=== PATIENT | male | born 1940 | race Caucasian/White ===

== ENCOUNTER 2020-03-19 13:50 | Inpatient (IN) ==
[2020-03-19] MEDS ORDERED: Naloxone 0.4 MG/ML INJ IVP PRN (16:04)
[2020-03-19] MEDS ORDERED: Ondansetron ODT 4 MG TAB.RAPDIS SL PRN (16:04)
[2020-03-19] MEDS ORDERED: 0.9 % Sodium Chloride 1,000 ML IVC SCH (16:15)
[2020-03-19] MEDS ORDERED: 0.9 % Sodium Chloride 1,000 ML IVC ONE (16:44)
[2020-03-19 16:48] LABS: Basophils % 0.2 %; Hematocrit 29.8 % (37.5-50.1); Hemoglobin 9.7 g/dL (12.9-16.9); Immature Granulocytes % 0.6 % (0-4); Lymphocytes # 0.4 K/mcL (0.6-4.6); Lymphocytes % 3.7 %; Mean Corpuscular HGB Conc 32.6 g/dL (31.6-35.5); Mean Corpuscular Hemoglobin 33.1 pg (28.0-33.3); Mean Corpuscular Volume 101.7 fL (83.0-100.0); Mean Platelet Volume 11.8 fL (9.4-12.4); Monocytes # 0.9 K/mcL (0.0-1.3); Monocytes % 8.1 %; Neutrophils # 9.9 K/mcL (1.6-8.9); Platelet Count 151 K/mcL (140-400); Red Blood Count 2.93 M/mcL (4.19-5.50); Red Cell Distribution Width 15.9 % (11.5-14.5); Segmented Neutrophils % 87.4 %; White Blood Count 11.3 K/mcL (4.3-11.1)
[2020-03-19 16:52] LABS: INR 1.9; Prothrombin Time 21.1 Seconds (9.4-12.1)
[2020-03-19 17:05] LABS: Albumin 3.3 g/dL (3.5-5.7); Albumin/Globulin Ratio 1.5 (1.1-2.2); Calcium 8.1 mg/dL (8.6-10.3); Globulin 2.2 g/dL (2.4-3.5); Potassium 3.9 mEq/L (3.5-5.1); Total Protein 5.5 g/dL (6.4-8.9)
[2020-03-19 17:29] LABS: Chol/HDL Ratio 3.3 (0-4.9)
[2020-03-19] MEDS ORDERED: *HR* Heparin 5,000 UNIT/ML VIAL IVP ONE (17:47)
[2020-03-19] MEDS ORDERED: *HR* Heparin 5,000 UNIT/ML VIAL IVP PRN ×2 (17:47)
[2020-03-19] MEDS ORDERED: Heparin 25,000 UNIT/250 ML D5W 25,000 UNIT/250 ML IV.SOLN IVC SCH (18:00)
[2020-03-19] MEDS ORDERED: *HR* Heparin 5,000 UNIT/ML VIAL SQ SCH (18:00)
[2020-03-19] MEDS ORDERED: *HR* Metoprolol 5 MG/5 ML VIAL IVP PRN (18:15)
[2020-03-19] MEDS: 0.9 % Sodium Chloride 1,000 ML IVC SCH (18:49)
[2020-03-19] MEDS ORDERED: *HR* Amiodarone 200 MG TABLET PO SCH (21:00)
[2020-03-19] MEDS ORDERED: Acetaminophen 325 MG TABLET PO ONE (21:35)
[2020-03-19] MEDS ORDERED: *HR* Metoprolol 5 MG/5 ML VIAL IVP ONE ×2 (21:36→21:45)
[2020-03-19] MEDS ORDERED: Acetaminophen IV 1,000 MG/100 ML INFUS..BTL IVPB ONE (23:10)
[2020-03-19] MEDS: Piperacillin/Tazobactam 3.375 GM in 0.9 % Sodium Chloride Mini Bag 100 ML IVPB SCH (23:59)
[2020-03-20 01:07] LABS: Basophils % 0.2 %; Hematocrit 27.1 % (37.5-50.1); Hemoglobin 8.9 g/dL (12.9-16.9); Immature Granulocytes % 0.7 % (0-4); Lymphocytes # 0.5 K/mcL (0.6-4.6); Lymphocytes % 4.6 %; Mean Corpuscular HGB Conc 32.8 g/dL (31.6-35.5); Mean Corpuscular Hemoglobin 33.6 pg (28.0-33.3); Mean Corpuscular Volume 102.3 fL (83.0-100.0); Mean Platelet Volume 12.6 fL (9.4-12.4); Monocytes # 0.8 K/mcL (0.0-1.3); Monocytes % 8.3 %; Neutrophils # 8.3 K/mcL (1.6-8.9); Platelet Count 141 K/mcL (140-400); Red Blood Count 2.65 M/mcL (4.19-5.50); Red Cell Distribution Width 15.9 % (11.5-14.5); Segmented Neutrophils % 86.2 %; White Blood Count 9.7 K/mcL (4.3-11.1)
[2020-03-20 01:26] LABS: Calcium 7.8 mg/dL (8.6-10.3); Potassium 3.9 mEq/L (3.5-5.1)
[2020-03-20] MEDS: 0.9 % Sodium Chloride 1,000 ML IVC SCH (02:18)
[2020-03-20] MEDS: Piperacillin/Tazobactam 3.375 GM in 0.9 % Sodium Chloride Mini Bag 100 ML IVPB SCH ×2 (08:14→17:26)
[2020-03-20 10:35] LABS: Hematocrit 29.3 % (37.5-50.1); Hemoglobin 9.5 g/dL (12.9-16.9); Mean Corpuscular HGB Conc 32.4 g/dL (31.6-35.5); Mean Corpuscular Hemoglobin 33.5 pg (28.0-33.3); Mean Corpuscular Volume 103.2 fL (83.0-100.0); Platelet Count 137 K/mcL (140-400); Red Blood Count 2.84 M/mcL (4.19-5.50); White Blood Count 11.5 K/mcL (4.3-11.1)
[2020-03-20 10:41] LABS: Heparin anti-factor XA UFH 0.71 IU/mL (0.30-0.70)
[2020-03-20 10:42] LABS: INR 1.7
[2020-03-20] MEDS: Heparin 25,000 UNIT/250 ML D5W 25,000 UNIT/250 ML IV.SOLN IVC SCH (11:25)
[2020-03-20] MEDS ORDERED: traZODone 50 MG TABLET PO PRN (14:29)
[2020-03-20] MEDS ORDERED: Acetaminophen 325 MG TABLET PO PRN (14:35)
[2020-03-20] MEDS ORDERED: *HR* FentaNYL (PF) 100 MCG/2 ML VIAL IVP ONE (14:43)
[2020-03-21] MEDS: Piperacillin/Tazobactam 3.375 GM in 0.9 % Sodium Chloride Mini Bag 100 ML IVPB SCH ×3 (00:27→19:00)
[2020-03-21 00:54] LABS: Basophils % 0.2 %; Hematocrit 28.8 % (37.5-50.1); Hemoglobin 9.3 g/dL (12.9-16.9); Immature Granulocytes % 0.9 % (0-4); Lymphocytes # 0.6 K/mcL (0.6-4.6); Lymphocytes % 5.5 %; Mean Corpuscular HGB Conc 32.3 g/dL (31.6-35.5); Mean Corpuscular Hemoglobin 33.1 pg (28.0-33.3); Mean Corpuscular Volume 102.5 fL (83.0-100.0); Mean Platelet Volume 12.6 fL (9.4-12.4); Monocytes # 0.8 K/mcL (0.0-1.3); Monocytes % 7.2 %; Neutrophils # 9.6 K/mcL (1.6-8.9); Platelet Count 165 K/mcL (140-400); Red Blood Count 2.81 M/mcL (4.19-5.50); Segmented Neutrophils % 86.2 %; White Blood Count 11.2 K/mcL (4.3-11.1)
[2020-03-21 01:03] LABS: Calcium 8.1 mg/dL (8.6-10.3); Potassium 3.8 mEq/L (3.5-5.1)
[2020-03-21 01:05] LABS: % Iron Saturation 9 % (20-55); Iron 12 mcg/dL (65-175); Transferrin 97 mg/dL (203-362)
[2020-03-21 01:37] LABS: Ferritin 1343 ng/mL (20-250)
[2020-03-21 02:07] LABS: Folate > 22.3 ng/mL (3.0-16.0); Vitamin B12 593 pg/mL (250-1100)
[2020-03-21 02:44] LABS: INR 1.6
[2020-03-21] MEDS ORDERED: 0.9 % Sodium Chloride 1,000 ML IVC SCH (18:13)
[2020-03-21] MEDS ORDERED: Ondansetron ODT 4 MG TAB.RAPDIS SL PRN (18:14)
[2020-03-21] MEDS: Heparin 25,000 UNIT/250 ML D5W 25,000 UNIT/250 ML IV.SOLN IVC SCH (18:41)
[2020-03-22] MEDS: Piperacillin/Tazobactam 3.375 GM in 0.9 % Sodium Chloride Mini Bag 100 ML IVPB SCH (00:05)
[2020-03-22] MEDS: *HR* Metoprolol 5 MG/5 ML VIAL IVP SCH ×4 (00:23→18:13)
[2020-03-22 01:07] LABS: Basophils % 0.4 %; Eosinophils % 0.5 %; Hematocrit 26.6 % (37.5-50.1); Hemoglobin 8.5 g/dL (12.9-16.9); Immature Granulocytes % 1.3 % (0-4); Lymphocytes # 0.7 K/mcL (0.6-4.6); Mean Corpuscular Hemoglobin 32.9 pg (28.0-33.3); Mean Corpuscular Volume 103.1 fL (83.0-100.0); Monocytes # 0.6 K/mcL (0.0-1.3); Monocytes % 7.5 %; Neutrophils # 6.8 K/mcL (1.6-8.9); Platelet Count 159 K/mcL (140-400); Red Blood Count 2.58 M/mcL (4.19-5.50); Segmented Neutrophils % 82.3 %; White Blood Count 8.3 K/mcL (4.3-11.1)
[2020-03-22 01:14] LABS: INR 1.4; Prothrombin Time 15.6 Seconds (9.4-12.1)
[2020-03-22 01:23] LABS: Calcium 8.2 mg/dL (8.6-10.3); Potassium 3.5 mEq/L (3.5-5.1)
[2020-03-22] MEDS ORDERED: Bupivacaine/EPI 1:200k 0.25%PF 30 ML VIAL ONE (07:20)
[2020-03-22] MEDS ORDERED: *HR* Propofol 200 MG/20 ML VIAL IVP ONE (07:24)
[2020-03-22] MEDS ORDERED: *HR* FentaNYL (PF) 100 MCG/2 ML VIAL ONE ×2 (07:24→10:02)
[2020-03-22] MEDS ORDERED: Lidocaine -MPF 2% 2 ML VIAL ONE (07:30)
[2020-03-22] MEDS ORDERED: *HR* Rocuronium Bromide 50 MG/5 ML VIAL ONE (07:33)
[2020-03-22] MEDS ORDERED: Dexamethasone 4 MG/ML VIAL ONE (07:33)
[2020-03-22] MEDS ORDERED: Ondansetron 4 MG/2 ML VIAL ONE (07:33)
[2020-03-22] MEDS ORDERED: *HR* Succinylcholine 200 MG/10 ML VIAL IVP ONE (07:33)
[2020-03-22] MEDS ORDERED: Ondansetron 4 MG/2 ML VIAL IVP ONE (07:43)
[2020-03-22] MEDS ORDERED: *HR* Promethazine 25 MG/ML VIAL IVP PRN (07:43)
[2020-03-22] MEDS ORDERED: *HR* OxyCODONE Immed Rel 5 MG TABLET PO PRN ×2 (07:43→11:55)
[2020-03-22] MEDS ORDERED: Isovue-300 50ML VIAL ONE (07:45)
[2020-03-22] MEDS ORDERED: Acetaminophen IV 1,000 MG/100 ML INFUS..BTL ONE (08:10)
[2020-03-22] MEDS ORDERED: *HR* PHENYLEPHRINE 1,000 MCG/10 ML SYRINGE IVP ONE (08:39)
[2020-03-22] MEDS ORDERED: Lidocaine HCL 4 ML Topical Solution (Laryng-O-Jet Kit Sterile Pak) TP ONE (09:54)
[2020-03-22] MEDS: *HR* HYDROmorphone PF 0.5 MG/0.5 ML SYRINGE IVP PRN ×4 (10:22→10:56)
[2020-03-22] MEDS ORDERED: 0.9 % Sodium Chloride 500 ML ONE (10:26)
[2020-03-22] MEDS ORDERED: Ringers Solution, Lactated 250 ML IVC PRN (11:55)
[2020-03-22] MEDS ORDERED: Naloxone 0.4 MG/ML INJ IVP PRN (11:55)
[2020-03-22] MEDS ORDERED: Ondansetron ODT 4 MG TAB.RAPDIS SL PRN (11:55)
[2020-03-22] MEDS ORDERED: Ringers Solution, Lactated 1,000 ML IVC SCH (11:55)
[2020-03-22] MEDS ORDERED: traZODone 50 MG TABLET PO PRN (11:55)
[2020-03-22] MEDS ORDERED: *HR* Metoprolol 5 MG/5 ML VIAL IVP SCH (12:00)
[2020-03-22] MEDS ORDERED: Ringers Solution, Lactated 500 ML IVC ONE (13:12)
[2020-03-22] MEDS ORDERED: *HR* Heparin 5,000 UNIT/ML VIAL IVP ONE ×2 (14:10→14:13)
[2020-03-22] MEDS ORDERED: *HR* Heparin 5,000 UNIT/ML VIAL IVP PRN ×4 (14:10→14:13)
[2020-03-22] MEDS ORDERED: Heparin 25,000 UNIT/250 ML D5W 25,000 UNIT/250 ML IV.SOLN IVC SCH ×3 (14:15→14:27)
[2020-03-22 15:07] LABS: Hematocrit 29.3 % (37.5-50.1); Hemoglobin 9.5 g/dL (12.9-16.9); Mean Corpuscular HGB Conc 32.4 g/dL (31.6-35.5); Mean Corpuscular Hemoglobin 34.2 pg (28.0-33.3); Mean Corpuscular Volume 105.4 fL (83.0-100.0); Mean Platelet Volume 12.3 fL (9.4-12.4); Platelet Count 206 K/mcL (140-400); Red Blood Count 2.78 M/mcL (4.19-5.50); Red Cell Distribution Width 16.5 % (11.5-14.5); White Blood Count 9.8 K/mcL (4.3-11.1)
[2020-03-22] MEDS: Acetaminophen 325 MG TABLET PO PRN (15:09)
[2020-03-22 15:13] LABS: Heparin anti-factor XA UFH 0.22 IU/mL (0.30-0.70); INR 1.2; Prothrombin Time 13.4 Seconds (9.4-12.1)
[2020-03-22 15:17] LABS: Activated Partial Thrombo Time 32.5 Seconds (26.0-36.0)
[2020-03-22] MEDS: Ringers Solution, Lactated 1,000 ML IVC SCH ×2 (15:33→22:13)
[2020-03-22] MEDS: allopurinoL 100 MG TABLET PO SCH (20:03)
[2020-03-23] MEDS: *HR* Metoprolol 5 MG/5 ML VIAL IVP SCH ×5 (00:37→15:03)
[2020-03-23] MEDS: Acetaminophen 325 MG TABLET PO PRN (00:40)
[2020-03-23] MEDS: Piperacillin/Tazobactam 3.375 GM in 0.9 % Sodium Chloride Mini Bag 100 ML IVPB SCH (03:44)
[2020-03-23 04:07] LABS: Hematocrit 26.3 % (37.5-50.1); Hemoglobin 8.6 g/dL (12.9-16.9); Immature Granulocytes % 2.4 % (0-4); Lymphocytes % 4.3 %; Mean Corpuscular HGB Conc 32.7 g/dL (31.6-35.5); Mean Platelet Volume 11.3 fL (9.4-12.4); Monocytes % 8.5 %; Platelet Count 208 K/mcL (140-400); Red Blood Count 2.53 M/mcL (4.19-5.50); Segmented Neutrophils % 84.5 %; White Blood Count 13.1 K/mcL (4.3-11.1)
[2020-03-23 04:08] LABS: Basophils % 0.3 %; Lymphocytes # 0.6 K/mcL (0.6-4.6); Monocytes # 1.1 K/mcL (0.0-1.3); Neutrophils # 11.1 K/mcL (1.6-8.9); Nucleated Red Blood Cells 0.2 /100 WBC (0)
[2020-03-23 04:13] LABS: INR 1.2; Prothrombin Time 13.7 Seconds (9.4-12.1)
[2020-03-23 04:30] LABS: Albumin/Globulin Ratio 1.2 (1.1-2.2); Bilirubin,Direct 0.5 mg/dL (0.0-0.2); Bilirubin,Indirect 0.4 mg/dL (0.0-1.0); Bilirubin,Total 0.9 mg/dL (0.3-1.0); Globulin 2.6 g/dL (2.4-3.5); Total Protein 5.6 g/dL (6.4-8.9)
[2020-03-23 04:31] LABS: Calcium 8.6 mg/dL (8.6-10.3); Potassium 4.1 mEq/L (3.5-5.1)
[2020-03-23] MEDS: allopurinoL 100 MG TABLET PO SCH ×2 (09:13→19:59)
[2020-03-23] MEDS: Ringers Solution, Lactated 1,000 ML IVC SCH ×3 (09:13→20:01)
[2020-03-23 10:41] LABS: Bilirubin,Urine Negative (Negative); Blood,Urine Negative (Negative); Clarity,Urine Clear (Clear); Color,Urine Yellow (Yellow); Glucose,Urine (UA) Normal (Normal); Ketones,Urine Trace mg/dL (Negative); Leukocyte Esterase,Urine Negative (Negative); Nitrite,Urine Negative (Negative); Protein,Urine 50 mg/dL (Neg-Trace); Specific Gravity,Urine 1.028 (1.010-1.025); WBC,Urine 0-3 per hpf (0-3)
[2020-03-23] MEDS ORDERED: *HR* Metoprolol 5 MG/5 ML VIAL IVP PRN (15:02)
[2020-03-23] MEDS: Apixaban 2.5 MG TABLET PO SCH (15:07)
[2020-03-24] MEDS: Ringers Solution, Lactated 1,000 ML IVC SCH ×3 (03:15→20:06)
[2020-03-24 05:51] LABS: Basophils % 0.2 %; Hematocrit 23.4 % (37.5-50.1); Immature Granulocytes % 2.7 % (0-4); Lymphocytes # 0.4 K/mcL (0.6-4.6); Lymphocytes % 4.2 %; Mean Corpuscular HGB Conc 32.9 g/dL (31.6-35.5); Mean Corpuscular Volume 100.4 fL (83.0-100.0); Monocytes # 0.8 K/mcL (0.0-1.3); Monocytes % 7.6 %; Neutrophils # 8.6 K/mcL (1.6-8.9); Nucleated Red Blood Cells 0.3 /100 WBC (0); Platelet Count 187 K/mcL (140-400); Red Blood Count 2.33 M/mcL (4.19-5.50); Red Cell Distribution Width 15.9 % (11.5-14.5); Segmented Neutrophils % 85.3 %; White Blood Count 10.1 K/mcL (4.3-11.1)
[2020-03-24 05:55] LABS: Hemoglobin 7.7 g/dL (12.9-16.9)
[2020-03-24 06:09] LABS: Calcium 8.6 mg/dL (8.6-10.3); Potassium 3.8 mEq/L (3.5-5.1)
[2020-03-24] MEDS ORDERED: *HR* Metoprolol 5 MG/5 ML VIAL IVP ONE (06:36)
[2020-03-24] MEDS ORDERED: *HR* Metoprolol 5 MG/5 ML VIAL IVP SCH ×2 (08:00→12:00)
[2020-03-24] MEDS: Apixaban 2.5 MG TABLET PO SCH (08:11)
[2020-03-24] MEDS: allopurinoL 100 MG TABLET PO SCH (08:11)
[2020-03-24] MEDS ORDERED: QUEtiapine Fumarate 25 MG TABLET PO PRN (08:12)
[2020-03-24] MEDS: Piperacillin/Tazobactam 3.375 GM in 0.9 % Sodium Chloride Mini Bag 100 ML IVPB SCH ×2 (08:23→16:56)
[2020-03-24] MEDS: Acetaminophen 325 MG TABLET PO PRN (08:23)
[2020-03-24] MEDS ORDERED: 0.9 % Sodium Chloride 1,000 ML IVC ONE (10:21)
[2020-03-24 13:01] LABS: Hemoglobin 7.5 g/dL (12.9-16.9)
[2020-03-25] MEDS: Piperacillin/Tazobactam 3.375 GM in 0.9 % Sodium Chloride Mini Bag 100 ML IVPB SCH ×2 (00:30→09:04)
[2020-03-25] MEDS: Ringers Solution, Lactated 1,000 ML IVC SCH (03:30)
[2020-03-25 05:15] LABS: Basophils % 0.2 %; Eosinophils % 0.4 %; Hematocrit 22.3 % (37.5-50.1); Hemoglobin 7.3 g/dL (12.9-16.9); Immature Granulocytes % 2.7 % (0-4); Lymphocytes # 0.5 K/mcL (0.6-4.6); Lymphocytes % 5.1 %; Mean Corpuscular HGB Conc 32.7 g/dL (31.6-35.5); Mean Corpuscular Volume 100.9 fL (83.0-100.0); Mean Platelet Volume 11.1 fL (9.4-12.4); Monocytes # 0.6 K/mcL (0.0-1.3); Monocytes % 6.6 %; Neutrophils # 8.2 K/mcL (1.6-8.9); Nucleated Red Blood Cells 0.3 /100 WBC (0); Platelet Count 184 K/mcL (140-400); Red Blood Count 2.21 M/mcL (4.19-5.50); Red Cell Distribution Width 16.6 % (11.5-14.5); White Blood Count 9.6 K/mcL (4.3-11.1)
[2020-03-25 05:32] LABS: Albumin 2.5 g/dL (3.5-5.7); Albumin/Globulin Ratio 1.2 (1.1-2.2); Bilirubin,Direct 0.4 mg/dL (0.0-0.2); Bilirubin,Indirect 0.2 mg/dL (0.0-1.0); Bilirubin,Total 0.6 mg/dL (0.3-1.0); Calcium 8.5 mg/dL (8.6-10.3); Globulin 2.1 g/dL (2.4-3.5); Potassium 3.7 mEq/L (3.5-5.1); Total Protein 4.6 g/dL (6.4-8.9); Uric Acid 4.5 mg/dL (2.3-7.6)
[2020-03-25] MEDS ORDERED: 0.9 % Sodium Chloride 250 ML IVC SCH (11:45)
[2020-03-26 02:58] LABS: Basophils # 0.1 K/mcL (0.0-0.2); Basophils % 0.4 %; Eosinophils % 0.3 %; Hematocrit 27.1 % (37.5-50.1); Immature Granulocytes % 4.8 % (0-4); Lymphocytes # 0.7 K/mcL (0.6-4.6); Lymphocytes % 6.1 %; Mean Corpuscular HGB Conc 33.2 g/dL (31.6-35.5); Mean Corpuscular Hemoglobin 32.8 pg (28.0-33.3); Mean Corpuscular Volume 98.9 fL (83.0-100.0); Mean Platelet Volume 11.3 fL (9.4-12.4); Monocytes # 0.8 K/mcL (0.0-1.3); Monocytes % 6.6 %; Neutrophils # 9.8 K/mcL (1.6-8.9); Nucleated Red Blood Cells 0.3 /100 WBC (0); Platelet Count 231 K/mcL (140-400); Red Blood Count 2.74 M/mcL (4.19-5.50); Red Cell Distribution Width 16.8 % (11.5-14.5); Segmented Neutrophils % 81.8 %
[2020-03-26 03:09] LABS: Calcium 8.7 mg/dL (8.6-10.3); Potassium 3.9 mEq/L (3.5-5.1)
[2020-03-26 12:10] VITALS: BP 147/75
== END 2020-03-26 13:00 | disposition home health service (06) | DRG 853 ==
LOC: 3ANU → SUATTDRO 15:06
PROVIDERS: ADMIT Pharmacist; ATTEND Internal Medicine

== ENCOUNTER 2020-03-27 18:30 | Observation (INO) ==
[2020-03-27 20:10] LABS: Basophils # 0.1 K/mcL (0.0-0.2); Basophils % 1.2 %; Eosinophils # 0.1 K/mcL (0.0-0.6); Eosinophils % 0.9 %; Hematocrit 28.5 % (37.5-50.1); Hemoglobin 9.2 g/dL (12.9-16.9); Immature Granulocytes % 7.2 % (0-4); Lymphocytes # 0.5 K/mcL (0.6-4.6); Mean Corpuscular HGB Conc 32.3 g/dL (31.6-35.5); Mean Corpuscular Hemoglobin 32.4 pg (28.0-33.3); Mean Corpuscular Volume 100.4 fL (83.0-100.0); Mean Platelet Volume 11.2 fL (9.4-12.4); Monocytes # 0.5 K/mcL (0.0-1.3); Monocytes % 5.7 %; Nucleated Red Blood Cells 0.3 /100 WBC (0); Platelet Count 250 K/mcL (140-400); Red Blood Count 2.84 M/mcL (4.19-5.50); Red Cell Distribution Width 16.8 % (11.5-14.5); White Blood Count 8.9 K/mcL (4.3-11.1)
[2020-03-27 20:13] LABS: INR 1.4; Prothrombin Time 15.4 Seconds (9.4-12.1)
[2020-03-27 20:26] LABS: Large Platelets Present (Not Present); Platelet Estimate Normal (Normal)
[2020-03-27 20:27] LABS: Calcium 8.8 mg/dL (8.6-10.3); Potassium 3.8 mEq/L (3.5-5.1)
[2020-03-27 20:29] LABS: Troponin I 0.04 ng/mL (< 0.04)
[2020-03-27] MEDS ORDERED: Naloxone 0.4 MG/ML INJ IVP PRN (22:35)
[2020-03-27] MEDS ORDERED: DARBEPOETIN ALFA IN POLYSORBAT 60 MCG IJ SCH (22:45)
[2020-03-28 05:22] LABS: Basophils # 0.1 K/mcL (0.0-0.2); Eosinophils # 0.1 K/mcL (0.0-0.6); Eosinophils % 1.2 %; Hematocrit 25.8 % (37.5-50.1); Hemoglobin 8.6 g/dL (12.9-16.9); Lymphocytes # 0.5 K/mcL (0.6-4.6); Lymphocytes % 6.4 %; Mean Corpuscular HGB Conc 33.3 g/dL (31.6-35.5); Mean Corpuscular Hemoglobin 33.1 pg (28.0-33.3); Mean Corpuscular Volume 99.2 fL (83.0-100.0); Mean Platelet Volume 10.7 fL (9.4-12.4); Monocytes # 0.4 K/mcL (0.0-1.3); Monocytes % 5.7 %; Neutrophils # 6.1 K/mcL (1.6-8.9); Nucleated Red Blood Cells 0.4 /100 WBC (0); Platelet Count 204 K/mcL (140-400); Red Cell Distribution Width 16.5 % (11.5-14.5); Segmented Neutrophils % 78.7 %; White Blood Count 7.7 K/mcL (4.3-11.1)
[2020-03-28 05:44] LABS: Calcium 8.6 mg/dL (8.6-10.3); Potassium 3.6 mEq/L (3.5-5.1)
[2020-03-28 05:56] LABS: Platelet Estimate Normal (Normal)
[2020-03-28] MEDS ORDERED: Cyanocobalamin (B-12) 1,000 MCG TABLET PO SCH (09:00)
[2020-03-28] MEDS ORDERED: Apixaban 5 MG TABLET PO SCH ×2 (09:00→21:00)
[2020-03-28] MEDS ORDERED: Magnesium Oxide 400 MG TABLET PO SCH (09:00)
[2020-03-28] MEDS ORDERED: allopurinoL 100 MG TABLET PO SCH (09:00)
[2020-03-28] MEDS ORDERED: Folic Acid 1 MG TABLET PO SCH (09:00)
[2020-03-28] MEDS ORDERED: Furosemide 40 MG/4 ML VIAL IVP SCH (09:00)
[2020-03-28] MEDS ORDERED: Perflutren Lipid Microsphere 1.3 ML in 0.9 % Sodium Chloride 8.7 ML IVP ONE (09:26)
[2020-03-28 11:15] VITALS: BP 138/67
== END 2020-03-28 16:06 | disposition home or self-care (01) ==
LOC: 3BNU 18:30 → EMEROOARM 18:30 → 3BNU 23:12
PROVIDERS: ADMIT Family Medicine; ATTEND Family Medicine